=== PATIENT | male | born 1995 | race Caucasian/White ===

== ENCOUNTER 2025-04-07 17:16 | Emergency (ER) | payer OTHER ==
--- NOTE | 2025-04-07 18:00 | ED ---
General Adult HPI - General Source: patient, RN notes reviewed Mode of arrival: ambulatory Limitations: no limitations <Mary Pacheco - Last Filed: 04/07/25 17:59> <Bharathi Macedo - Last Filed: 04/08/25 22:06> - General Chief complaint: Dizziness Stated complaint: Low Back Pain/dizziness Time Seen by Provider: 04/07/25 17:30 - History of Present Illness Initial comments: Quick [id number] male with no pertinent medical history presented to emergency room with complaints of diffuse joint aches, headaches dizziness and lightheadedness. Symptoms started yesterday. Endorses fever, congestion and mild cough. (Mary Pacheco) 29-year-old male presenting with multiple complaints. Patient is complaining of diffuse bodyaches, lower back pain, headache, and lightheadedness. Symptoms started last night. Patient admits to fever, congestion, and cough. Denies nausea, vomiting, diarrhea, abdominal pain. No chest pain or difficulty breathing. Patient took Tylenol in the waiting room prior to my evaluation. No injury or trauma. No loss of bowel or bladder control or saddle paresthesia. No vision or hearing changes. He does admit to light sensitivity. (Bharathi Macedo) - Related Data Allergies Allergy/AdvReac Type Severity Reaction Status Date / Time No Known Allergies Allergy Verified 04/07/25 17:30 Review of Systems ROS Other: All systems not noted in ROS Statement are negative. <Mary Pacheco - Last Filed: 04/07/25 17:59> ROS Other: All systems not noted in ROS Statement are negative. <Bharathi Macedo - Last Filed: 04/08/25 22:06> ROS Statement: Those systems with pertinent positive or pertinent negative responses have been documented in the HPI. Past Medical History Past Medical History: No Reported History History of Any Multi-Drug Resistant Organisms: None Reported Additional Past Surgical History / Comment(s): vasectomy Past Psychological History: No Psychological Hx Reported Smoking Status: Never smoker Past Alcohol Use History: None Reported Past Drug Use History: None Reported <Mary Pacheco - Last Filed: 04/07/25 17:59> General Exam Limitations: no limitations <Mary Pacheco - Last Filed: 04/07/25 17:59> Limitations: no limitations General appearance: alert, in no apparent distress Head exam: Present: atraumatic, normocephalic, normal inspection Eye exam: Present: normal appearance, EOMI. Absent: periorbital swelling Neck exam: Present: normal inspection. Absent: meningismus Respiratory exam: Present: normal lung sounds bilaterally. Absent: respiratory distress, wheezes, rales, rhonchi, stridor Cardiovascular Exam: Present: regular rate, normal rhythm, normal heart sounds. Absent: systolic murmur, diastolic murmur, rubs, gallop, clicks Extremities exam: Present: normal inspection, full ROM Neurological exam: Present: alert, oriented X3 Expanded Eye Response: (4) open spontaneously Motor Response: (6) obeys commands Verbal Response: (5) oriented [place] Total: 15 Psychiatric exam: Present: normal affect, normal mood Skin exam: Present: warm, dry, normal color <Bharathi Macedo - Last Filed: 04/08/25 22:06> - General Exam Comments Initial Comments: Visual Physical Exam Vital signs reviewed General: Well-appearing, nontoxic, no acute distress. Head: Normocephalic, atraumatic Eyes: PERRLA, EOMI ENT: Airway patent Chest: Nonlabored breathing Skin: No visual rash, normal skin tone Neuro: Alert and oriented 3 Musculoskeletal: No gross abnormalities (Mary Pacheco) Course Vital Signs 04/07/25 04/07/25 04/07/25 17:27 20:54 21:56 Temperature 100.1 F H 99.4 F 99.0 F Pulse Rate 86 95 73 Respiratory 18 17 18 Rate Blood Pressure 122/86 105/68 108/65 O2 Sat by Pulse 98 98 99 Oximetry Medical Decision Making <Mary Pacheco - Last Filed: 04/07/25 17:59> - Lab Data Result diagrams: 04/07/25 18:07 04/07/25 18:07 <Bharathi Macedo - Last Filed: 04/08/25 22:06> - Medical Decision Making I completed the quick note portion of this chart signed Mary Pacheco PA-C (Mary Pacheco) EKG shows sinus rhythm with short NM interval. Ventricular rate 95. NM int erval 112. QRS 96. QT 317. QTc 369 Was pt. sent in by a medical professional or institution ([facility], TIRE INSTALLER, urgent care, hospital, or snf...) When possible be specific @ -No Did you speak to anyone other than the patient for history (EMS, parent, family, police, friend...)? What history was obtained from this source @ -Partner Did you review nursing and triage notes (agree or disagree)? Why? @ -I reviewed and agree with nursing and triage notes Were old charts reviewed (outside hosp., previous admission, EMS record, old EKG, old radiological studies, urgent care reports/EKG's, snf records)? Report findings @ -No old charts were reviewed Differential Diagnosis (chest pain, altered mental status, abdominal pain women, abdominal pain men, vaginal bleeding, weakness, fever, dyspnea, syncope, headache, dizziness, GI bleed, back pain, seizure, CVA, palpatations, mental health, musculoskeletal)? @ -MDM Differential Headache: Migraine, tension, cluster, carbon monoxide, central venous thrombosis, pension karma temporal arteritis, acute closure glaucoma, intercranial hemorrhage, mastoiditis, sinusitis, head injury… this is not meant to be an all-inclusive list. EKG interpreted by me (3pts min.). @ -EKG shows sinus rhythm with short NM interval. Ventricular rate 95. NM interval 112. QRS 96. QT 317. QTc 369 X-rays interpreted by me (1pt min.). @ -None done CT interpreted by me (1pt min.). @ -None done U/S interpreted by me (1pt. min.). @ -None done What testing was considered but not performed or refused? (CT, X-rays, U/S, labs)? Why? @ -None What meds were considered but not given or refused? Why? @ -None Did you discuss the management of the patient with other professionals (professionals i.e. [facility], TIRE INSTALLER, lab, RT, psych nurse, social media community manager, trenching machine operator, teacher, chief executive officer, case loader operator)? Give summary @ -No Was smoking cessation discussed for >3mins.? @ -No Was critical care preformed (if so, how long)? @ -No Were there social determinants of health that impacted care today? How? (Homelessness, low income, unemployed, alcoholism, drug addiction, transportation, low edu. Level, literacy, decrease access to med. care, nursing home, rehab)? @ -No Was there de-escalation of care discussed even if they declined (Discuss DNR or withdrawal of care, Hospice)? DNR status @ -No What co-morbidities impacted this encounter? (DM, HTN, Smoking, COPD, CAD, Cancer, CVA, ARF, Chemo, Hep., AIDS, mental health diagnosis, sleep apnea, morbid obesity)? @ -None Was patient admitted / discharged? Hospital course, mention meds given and route, prescriptions, significant lab abnormalities, going to OR and other pertinent info. @ -Patient 29-year-old male presenting with multiple complaints. Workup was initially started by triage, at the time the patient was complaining of dizziness. EKG was obtained which showed sinus rhythm. White count 3.94. Remainder of lab work requires no immediate action. Patient later was placed in a hallway bed and evaluated by myself. Patient's main complaints at this time seem to be his headache and lower back pain. Seems to be complaining of symptoms in relation to viral syndrome given that he is having bodyaches headache cough congestion and fever. This is also supported by the fact that his white count is low. He is negative for COVID, influenza, RSV. He is given a migraine cocktail and on reassessment reports improvement in his symptoms. He is educated on today's findings and supportive management at home. Follow-up with PCP. Report back to ER with any new or worsening symptoms. Discussed return parameters and answered all questions. Patient conveyed verbal understanding and agreed to the plan. I discussed this case in detail with my attending Dr. Platt Undiagnosed new problem with uncertain prognosis? @ -No Drug Therapy requiring intensive monitoring for toxicity (Heparin, Nitro, Insulin, Cardizem)? @ -No Were any procedures done? @ -No Diagnosis/symptom? @ -Viral syndrome Acute, or Chronic, or Acute on Chronic? @ -Acute Uncomplicated (without systemic symptoms) or Complicated (systemic symptoms)? @ -Complicated Side effects of treatment? @ -No Exacerbation, Progression, or Severe Exacerbation? @ -No Poses a threat to life or bodily function? How? (Chest pain, [place], ME, pneumonia, PE, COPD, DKA, ARF, appy, cholecystitis, CVA, Diverticulitis, Homicidal, Suicidal, threat to staff... and all critical care pts) @ -Unlikely (Bharathi Macedo) - Lab Data Lab Results 04/07/25 04/07/25 04/07/25 Range/Units 18:07 18:07 18:07 WBC 3.94 L (4.50-10.00) 10*3/uL RBC 4.98 (4.40-5.60) 10*6/uL Hgb 14.9 (13.0-17.0) g/dL Hct 42.9 (39.6-50.0) % MCV 86.1 (80.0-97.0) fL MCH 29.9 (27.0-32.0) pg MCHC 34.7 (32.0-37.0) g/dL Plt Count 151 (140-440) 10*3/uL MPV 10.7 (9.5-12.2) fL Immature Gran % (Auto) 0.5 % Neutrophils % 64.9 % Lymphocytes % 16.2 % Monocytes % 16.8 % Eosinophils % 0.8 % Basophils % 0.8 % Immature Gran # 0.02 (0.00-0.04) 10*3/uL Neutrophils # 2.56 (1.80-7.70) 10*3/uL Lymphocytes # 0.64 L (0.90-5.00) 10*3/uL Monocytes # 0.66 (0.20-1.00) 10*3/uL Eosinophils # 0.03 L (0.04-0.35) 10*3/uL Basophils # 0.03 (0.00-0.10) 10*3/uL Sodium 138 (137-145) mmol/L Potassium 4.2 (3.5-5.1) mmol/L Chloride 100 (98-107) mmol/L Carbon Dioxide 27 (22-30) mmol/L Anion Gap 11 mmol/L BUN 10 (9-20) mg/dL Creatinine 0.99 (0.66-1.25) mg/dL Est GFR (CKD-EPI)AfAm >90 (>60 ml/min/1.73 sqM) Est GFR (CKD-EPI)NonAf >90 (>60 ml/min/1.73 sqM) Glucose 107 H (74-99) mg/dL Calcium 9.6 (8.4-10.2) mg/dL Total Bilirubin 1.6 H (0.2-1.3) mg/dL AST 31 (17-59) U/L ALT 26 (4-49) U/L Alkaline Phosphatase 52 (38-126) U/L Total Protein 7.9 (6.3-8.2) g/dL Albumin 4.9 (3.5-5.0) g/dL Urine Color Light Yellow Urine Appearance Clear (Clear) Urine pH 7.5 (5.0-8.0) Ur Specific [place] 1.019 (1.001-1.035) Urine Protein Negative (Negative) Urine Glucose (UA) Negative (Negative) Urine Ketones Negative (Negative) Urine Blood Negative (Negative) Urine Nitrite Negative (Negative) Urine Bilirubin Negative (Negative) Urine Urobilinogen <2.0 (<2.0) mg/dL Ur Leukocyte Esterase Negative (Negative) Influenza Type A (PCR) (Not Detectd) Influenza Type B (PCR) (Not Detectd) RSV (PCR) (Not Detectd) SARS-CoV-2 (PCR) (Not Detectd) 04/07/25 Range/Units 18:07 WBC (4.50-10.00) 10*3/uL RBC (4.40-5.60) 10*6/uL Hgb (13.0-17.0) g/dL Hct (39.6-50.0) % MCV (80.0-97.0) fL MCH (27.0-32.0) pg MCHC (32.0-37.0) g/dL Plt Count (140-440) 10*3/uL MPV (9.5-12.2) fL Immature Gran % (Auto) % Neutrophils % % Lymphocytes % % Monocytes % % Eosinophils % % Basophils % % Immature Gran # (0.00-0.04) 10*3/uL Neutrophils # (1.80-7.70) 10*3/uL Lymphocytes # (0.90-5.00) 10*3/uL Monocytes # (0.20-1.00) 10*3/uL Eosinophils # (0.04-0.35) 10*3/uL Basophils # (0.00-0.10) 10*3/uL Sodium (137-145) mmol/L Potassium (3.5-5.1) mmol/L Chloride (98-107) mmol/L Carbon Dioxide (22-30) mmol/L Anion Gap mmol/L BUN (9-20) mg/dL Creatinine (0.66-1.25) mg/dL Est GFR (CKD-EPI)AfAm (>60 ml/min/1.73 sqM) Est GFR (CKD-EPI)NonAf (>60 ml/min/1.73 sqM) Glucose (74-99) mg/dL Calcium (8.4-10.2) mg/dL Total Bilirubin (0.2-1.3) mg/dL AST (17-59) U/L ALT (4-49) U/L Alkaline Phosphatase (38-126) U/L Total Protein (6.3-8.2) g/dL Albumin (3.5-5.0) g/dL Urine Color Urine Appearance (Clear) Urine pH (5.0-8.0) Ur Specific [place] (1.001-1.035) Urine Protein (Negative) Urine Glucose (UA) (Negative) Urine Ketones (Negative) Urine Blood (Negative) Urine Nitrite (Negative) Urine Bilirubin (Negative) Urine Urobilinogen (<2.0) mg/dL Ur Leukocyte Esterase (Negative) Influenza Type A (PCR) Not Detected (Not Detectd) Influenza Type B (PCR) Not Detected (Not Detectd) RSV (PCR) Not Detected (Not Detectd) SARS-CoV-2 (PCR) Not Detected (Not Detectd) Disposition <Mary Pacheco - Last Filed: 04/07/25 17:59> Is patient prescribed a controlled substance at d/c from ED?: No Time of Disposition: 21:37 <Bharathi Macedo - Last Filed: 04/08/25 22:06> Clinical Impression: Viral syndrome Disposition: HOME SELF-CARE Condition: Good Instructions (If sedation given, give patient instructions): Viral Syndrome (ED) Additional Instructions: Follow-up with PCP. Report back to ER with any new or worsening symptoms. Take Motrin and Tylenol as needed for pain control. Stay well-hydrated and get plenty of rest. Referrals: Nonstaff,Physician [Primary Care Provider] - 1-2 days
[2025-04-07 18:20] LABS: Appearance,Urine Clear (Clear); Bilirubin,Urine Negative (Negative); Blood,Urine Negative (Negative); Color,Urine Light Yellow; Glucose,Urine (UA) Negative (Negative); Ketones,Urine Negative (Negative); Leukocyte Esterase,Urine Negative (Negative); Nitrite,Urine Negative (Negative); PH, Urine 7.5 (5.0-8.0); Protein,Urine Negative (Negative); Specific Gravity,Urine 1.019 (1.001-1.035); Urobilinogen,Urine <2.0 mg/dL (<2.0)
[2025-04-07 19:40] LABS: Basophils # (A) 0.03 10*3/uL (0.00-0.10); Basophils % (A) 0.8 %; Eosinophils # (A) 0.03 10*3/uL (0.04-0.35); Eosinophils % (A) 0.8 %; HCT 42.9 % (39.6-50.0); HGB 14.9 g/dL (13.0-17.0); Lymphocytes # (A) 0.64 10*3/uL (0.90-5.00); Lymphocytes % (A) 16.2 %; MCH 29.9 pg (27.0-32.0); MCHC 34.7 g/dL (32.0-37.0); MCV 86.1 fL (80.0-97.0); Mean Platelet Volume 10.7 fL (9.5-12.2); Monocytes # (A) 0.66 10*3/uL (0.20-1.00); Monocytes % (A) 16.8 %; Neutrophils # (A) 2.56 10*3/uL (1.80-7.70); Neutrophils % (A) 64.9 %; Platelet Count 151 10*3/uL (140-440); RBC 4.98 10*6/uL (4.40-5.60); RDW 12.7 % (11.5-14.5); WBC 3.94 10*3/uL (4.50-10.00)
[2025-04-07 20:08] LABS: ALT 26 U/L (4-49); AST 31 U/L (17-59); African American GFR (CKD) >90 (>60 ml/min/1.73 sqM); Albumin 4.9 g/dL (3.5-5.0); Alkaline Phosphatase 52 U/L (38-126); Anion Gap 11 mmol/L; Blood Urea Nitrogen 10 mg/dL (9-20); Calcium 9.6 mg/dL (8.4-10.2); Carbon Dioxide 27 mmol/L (22-30); Chloride 100 mmol/L (98-107); Glucose 107 mg/dL (74-99); Non-African American GFR(CKD) >90 (>60 ml/min/1.73 sqM); Potassium 4.2 mmol/L (3.5-5.1); Sodium 138 mmol/L (137-145); Total Bilirubin 1.6 mg/dL (0.2-1.3); Total Protein 7.9 g/dL (6.3-8.2)
[2025-04-07 20:14] LABS: Influenza A Not Detected (Not Detectd); Influenza B Not Detected (Not Detectd); RSV Not Detected (Not Detectd)
[2025-04-07] MEDS: diphenhydrAMINE 50 MG/ML 1 ML VIAL IVP STA (20:47)
[2025-04-07] MEDS: KETOROLAC 15 MG/ML 1 ML VIAL IVP STA (20:48)
[2025-04-07] MEDS: METOCLOPRAMIDE 5 MG/ML 2 ML VIAL IVP STA (20:50)
[2025-04-07] MEDS: DEXAMETHASONE SOD PHOSPHATE 10 MG/ML 1 ML VIAL IVP STA (20:50)
[2025-04-07] MEDS: SODIUM CHLORIDE 0.9% 1,000 ML IV STA (20:53)
[2025-04-07 21:58] VITALS: BP 108/65; PULSE 73; RESP 18; TEMP 99
== END 2025-04-07 21:59 | disposition home or self-care (01) ==
LOC: EC 17:16
DX: B34.9 Viral infection, unspecified (principal)
CPT/HCPCS: 36415; 93005; 80053; 85025; 81003; 87636; 99284; 96374; 96375; 96361; J1200; J1100; J2765; J1885